=== PATIENT | female | born 1955 | race Caucasian/White ===

== ENCOUNTER 2019-01-15 09:44 | Inpatient (IN) ==
[~2019-01-15 09:44] MED LIST: Vancomycin 1,000 MG, Sodium Chloride IRRigation 1,000 ML IR ONE
[2019-01-15] MEDS ORDERED: CeFAZolin Syr 2,000MG/20 ML 2,000 MG/20 ML SYRINGE IVPB ONE (10:16)
[2019-01-15] MEDS ORDERED: Albuterol 2.5 MG/3 ML NEBULIZER IH ONE (10:16)
[2019-01-15] MEDS ORDERED: *HR* Remifentanil 1 MG VIAL IVP ONE (10:18)
[2019-01-15] MEDS ORDERED: Lidocaine -MPF 4% 5 ML AMPUL ONE (10:18)
[2019-01-15] MEDS ORDERED: *HR* Succinylcholine 200 MG/10 ML VIAL IVP ONE (10:18)
[2019-01-15] MEDS ORDERED: Water for inj. (sterile) 10 ML IV ONE (10:18)
[2019-01-15] MEDS ORDERED: Heparin 1,000 UNITS/500 mL 500 ML ONE (10:18)
[2019-01-15] MEDS ORDERED: Dexamethasone 4 MG/ML VIAL ONE (10:18)
[2019-01-15] MEDS ORDERED: Lidocaine -MPF 2% 2 ML VIAL ONE ×3 (10:18→15:34)
[2019-01-15] MEDS ORDERED: *HR* Midazolam HCl 2 MG/2 ML VIAL ONE (10:18)
[2019-01-15] MEDS ORDERED: *HR* Phenylephrine 10 MG/ML VIAL ONE (10:18)
[2019-01-15] MEDS ORDERED: Ondansetron 4 MG/2 ML VIAL ONE (10:18)
[2019-01-15] MEDS ORDERED: *HR* Propofol 200 MG/20 ML VIAL IVP ONE (10:18)
[2019-01-15] MEDS ORDERED: *HR* FentaNYL (PF) 100 MCG/2 ML VIAL ONE (10:18)
[2019-01-15] MEDS ORDERED: *HR* Heparin 5,000 UNIT/ML VIAL ONE (10:18)
[2019-01-15] MEDS ORDERED: *HR* Rocuronium Bromide 50 MG/5 ML VIAL ONE (11:02)
[2019-01-15] MEDS: Ringers Solution, Lactated 1,000 ML IVC SCH ×2 (11:12→16:34)
--- NOTE | 2019-01-15 11:22 | History & Physical Report ---
Date of Encounter: 01/15/19 Time of Encounter: 11:18 24 Hour HP Update - Instructions Instructions: If the History and Physical is less than 30 days old and was completed prior to A.M. admission and or procedure and has NOT been updated on calendar day of procedure please complete this update prior to performing procedure. - Update Patient reports changes in Medical Condition: No Changes in examination, assessment, or condition: No Changes in Medication: No Preop tests/diagnostics Reviewed: Yes Surgery Remains Indicated: Yes Consent for Planned Operative Procedure(s) Verified: Yes - Pre-Operative Checklist Preoperative Checklist Indicated: Yes Prophylactic Antibiotic Ordered: Yes (vancomycin due to risk of MRSA) Home Medications Include Beta Atiya: Yes Beta Atiya Taken Today (Day of Surgery): Yes Beta Atiya Taken Yesterday (Day Prior to Surgery): Yes Is VTE Prophylaxis Indicated?: Yes
--- NOTE | 2019-01-15 11:23 | Anesthesia Evaluation PreOp ---
Date of Encounter: 01/15/19 Time of Encounter: 11:20 - Past History Planned Operation: RIGHT CEA Cardiac History: PR, CHF, Angina (STABLE), HTN, Hyperlipidemia, Cardiac Stent (mLAD, UNKNOWN DATE), Other (: ISCHEMIA IN LAD TERRITORY BY STRESS TEST, OCCLUDED mLAD STENT BY [facility], NORMAL EF, MEDICAL THERAPY MAXIMIZED) Pulmonary History: Smoker, COPD (MILD, NO INHALERS), KHOA Dx (CLINICALLY) [employer] History: Denies Any Significant HX Other Medical History: Diabetes Type II Alcohol Use: none Drug use: none Medications and Allergies Levothyroxine [Synthroid] 100 mcg PO QAM 03/09/17 [History] Metformin HCl [Glucophage] 1,000 mg PO BID 03/09/17 [History] glyBURIDE [GlyBURIDE] 5 mg PO DAILY 03/09/17 [History] Aspirin 81 mg PO DAILY #30 tab.chew 03/26/17 [Rx] Nitroglycerin [Nitrostat] 0.4 mg SL Q5-10MIN PRN #30 tab.subl MDD X3 DOSES CALL 911 03/26/17 [Rx] Atorvastatin [Lipitor] 40 mg PO HS #30 tablet 04/02/18 [Rx] Clopidogrel [Plavix] 75 mg PO DAILY 04/02/18 [History] Isosorbide MONOnitrate (24 HR) [Imdur] 30 mg PO DAILY #30 tab.er.24h 04/02/18 [Rx] amLODIPine [Norvasc] 2.5 mg PO DAILY #30 tablet 04/02/18 [Rx] Atenolol [Tenormin] 25 mg PO BID 01/15/19 [History] Multivitamin [Daily Multiple Vitamin] 1 each PO DAILY 01/15/19 [History] Ranitidine HCl [Acid Safe Technician] 150 mg PO DAILY PRN 01/15/19 [History] Allergy/AdvReac Type Severity Reaction Status Date / Time Iodinated Contrast- Oral and Allergy Rash Verified 10/14/18 14:13 IV Dye [Iodinated Contrast Media - IV Dye] povidone-iodine Allergy Rash Verified 10/14/18 14:13 [From Betadine] soap [From Betadine] Allergy Rash Verified 10/14/18 14:13 codeine AdvReac Hives Verified 10/14/18 14:13 - Meds/Allergy Pre-op Review Medications Reviewed: Yes Allergies Reviewed: Yes Beta Blockers on Current Med List: Yes If Beta Blockers taken, Date/Time (Last Dose taken): 729 Anesthesia Results - Labs Laboratory Tests 12/25/18 12/25/18 12/25/18 14:12 14:12 14:12 Hgb 14.2 Plt Count 381 Potassium 3.8 Creatinine 0.72 Est GFR (Non-Af Amer) > 60 Hemoglobin A1c 8.1 H Anesthesia Exam O2 Sat Height 1.55 m Height 1.55 m Weight 72.575 kg Weight 72.575 kg O2 Sat by Pulse Oximetry 99 Vital Signs/O2 Sat/Glucose, Most Recent Temp Pulse Resp BP Pulse Ox 98.1 F 67 18 116/62 99 01/15/19 10:19 01/15/19 10:19 01/15/19 10:19 01/15/19 10:19 01/15/19 10:19 Blood Glucose* 180 NPO (# of Hours): 8 - HEENT Mallampati: IV Teeth: Normal Oral Opening: Greater than 3 - [employer] Motor: Normal RUE, Normal LUE, Normal RLE, Normal LLE, Normal Face (CN 1, 3- 7, 9-12 GROSSLY NORMAL) - Cardiac Rhythm: Regular - Pulmonary Breath Sounds: bilateral Clear Respiratory Effort: Symmetrical Anesthesia Assess/Plan ASA Score: 3 Anesthetic Plan: General Monitoring Plan: Standard Monitors, A-Line Recovery Plan: PACU
[2019-01-15] MEDS ORDERED: Nitroglycerin 25 MG/250 ML INFUS..BTL IVC ONE (11:37)
[2019-01-15] MEDS ORDERED: Protamine Sulfate 50 MG/5 ML VIAL IVP ONE (11:40)
[2019-01-15] MEDS ORDERED: Bupivacaine-MPF 0.25% 10 ML VIAL ONE (11:40)
[2019-01-15] MEDS ORDERED: Heparin 1,000 UNITS/500 mL 1,000 ML ONE (11:40)
[2019-01-15] MEDS ORDERED: Vancomycin 1,000 MG VIAL ONE (12:16)
[2019-01-15] MEDS ORDERED: Albumin Human 5% 25.0 GM/500 ML VIAL ONE (15:05)
[2019-01-15] MEDS ORDERED: *HR* HYDROMORPHONE 2 MG/ML VIAL ONE (15:22)
[2019-01-15] MEDS ORDERED: *HR* Labetalol 100 MG/20 ML MDV ONE (15:30)
--- NOTE | 2019-01-15 15:30 | Operative Note ---
Date of procedure: 01/15/19 Pre-op diagnosis: 80-99% Right internal carotid artery stenosis Post-op diagnosis: same Procedure: Right carotid endarterectomy with hemashield patch angioplasty. Complications: None Anesthesia: SHRUTHIA Surgeon: Rafael Davis Was there an podiatrist assistant present: No Estimated blood loss (cc): 50 Specimen: Right carotid plaque Condition: stable Disposition: PACU Procedure in Detail: Indications: The patient is a 64-year-old female with a history of hypertension, diabetes, hyperlipidemia, carotid stenosis and coronary artery disease. She was found to have an 80-99% right internal carotid artery stenosis. A right carotid endarterectomy was recommended to reduce her risk of a cerebrovascular accident. Procedure: The patient was identified in the preoperative area. The risks, benefits, and alternatives of the procedure were discussed and all questions were answered. The patient was then taken to the operating room and placed in supine position on the operating table. After the induction of general endotracheal anesthesia, the patient was cleaned and draped in normal sterile fashion. A longitudinal incision was made anterior to the right sternocleidomastoid muscle. Hemostasis was obtained via electrocautery. Through a process of blunt, sharp, and electrocautery dissection, the platysma was traversed and the jugular vein was identified. The facial vein was dissected, clamped, divided and ligated with a 2-0 silk suture ligature. The jugular vein was retracted to expose the carotid bifurcation. The patient received 3000 units of heparin intravenously at this time. Proximal dissection of the common and external carotid arteries were performed circumferentially. Dissection of the internal carotid was performed circumferentially. Vessels loops were passed around the internal and external carotid and an umbilical tape was passed from the common carotid artery. The patient received additional 2000 units of heparin intravenously. Additional heparin was given throughout the case to maintain adequate anticoagulation. After waiting adequate time for the heparin to circulate, the vessels were occluded and a longitudinal arteriotomy was made into the common carotid artery. The arteriotomy was extended into the internal carotid beyond the plaque. Vigorous pulsatile retrograde flow was noted from the internal carotid artery upon release of the vessel loop. Vigorous retrograde flow was indicative of significant retrograde perfusion. Therefore no shunt was placed.. A dental freer was then used to perform a standard endarterectomy. Proximal and distal endpoints were inspected. No elevated flaps were noted. A Hemashield patch was cut to fit the defect and sutured in place with running 6-0 Prolene. Prior to completing the closure, each vessel was flushed and then reoccluded. Heparinized saline was infused into the lumen. The patch was completed. Flow was then restored in the external carotid artery, followed the common carotid artery and lastly the internal carotid artery was opened. A low resistance arterialized signal was present within the internal carotid artery beyond the patch. Thrombin and Gelfoam were used to aid in hemostasis. Meticulous hemostasis was obtained throughout the wound with electrocautery. Platelet rich and platelet poor plasma were infused into the wounds. The sternocleidomastoid was reapproximated with interrupted 3-0 Vicryl. Platel et rich and platelet poor plasma were infused into the wound. A TLS drain was brought through a separate stab incision and sutured in place with 0 silk suture. The platysma was reapproximated with running 3-0 Vicryl. Local anesthetic was infused in the skin. A 3-0 Monocryl was used to reapproximate the skin. A sterile dressing was applied. The patient was extubated, taken to the recovery room in stable condition.
--- NOTE | 2019-01-15 16:20 | Anesthesia Evaluation Post Op ---
Date of Encounter: 01/15/19 Time of Encounter: 16:19 - Discharge PostOp Status: Transfer Patient to floor (Patient's vital signs have been reviewed. Patient is stable postoperatively and has adequately recovered from anesthesia. Patient is determined to have stable airway patency and respiratory function including respiratory rate and oxygen saturation. Patient has a stable heart rate, blood pressure and adequate hydration. Patients mental status is acceptable. Patients temperature is appropriate. Pain and nausea are adequately controlled.)
[2019-01-15] MEDS ORDERED: Famotidine 20 MG TABLET PO PRN (16:56)
[2019-01-15] MEDS ORDERED: *HR* HYDROcodone/Acet 5/325 mg TABLET PO PRN (16:56)
[2019-01-15] MEDS ORDERED: Ondansetron 4 MG/2 ML VIAL IVP PRN (16:56)
[2019-01-15] MEDS ORDERED: Naloxone 0.4 MG/ML INJ IVP PRN (16:56)
[2019-01-15] MEDS ORDERED: 0.9 % Sodium Chloride 1,000 ML IVC SCH (16:56)
[2019-01-15] MEDS ORDERED: *HR* Dextrose 50 % in Water (Syg) 50 ML SYRINGE IVP PRN (16:56)
[2019-01-15] MEDS ORDERED: Acetaminophen 325 MG TABLET PO PRN (16:56)
[2019-01-15] MEDS ORDERED: *HR* OxyCODONE Immed Rel 5 MG TABLET PO PRN (16:56)
[2019-01-15] MEDS ORDERED: Nitroglycerin 0.4 MG TAB.SUBL SL PRN (16:56)
[2019-01-15] MEDS ORDERED: D5% in Water 1,000 ML IVC PRN (16:56)
[2019-01-15] MEDS ORDERED: Dextrose Gel 15 GM/37.5 ML TUBE PO PRN ×2 (16:56)
[2019-01-15] MEDS: *HR* Metoprolol 5 MG/5 ML VIAL IVP SCH (17:21)
[2019-01-15] MEDS: Insulin LISPRO 300 UNITS/3 ML VIAL SQ SCH (17:22)
--- NOTE | 2019-01-15 20:05 | Event Note ---
Date of Encounter: 01/15/19 Time of Encounter: 19:30 The patient is resting comfortably. She has no neurologic deficits. She denies any chest pain or shortness of breath. She has no hematoma. She is making adequate urine. She will continue with clear liquids tonight and I will be catheter in the morning. She elected be discharged tomorrow.
[2019-01-15] MEDS ORDERED: Insulin LISPRO 300 UNITS/3 ML VIAL SQ SCH (21:00)
[2019-01-15] MEDS ORDERED: *HR* LORazepam 2 MG/ML VIAL IVP ONE (22:09)
[2019-01-15] MEDS ORDERED: *HR* LORazepam 2 MG/ML VIAL ONE (22:13)
[2019-01-15] MEDS ORDERED: Levalbuterol Neb 1.25 MG/3 ML ONE (22:20)
[2019-01-15] MEDS ORDERED: Vancomycin 0 MG in D5% in Water 250 ML IVPB ONE (23:30)
[2019-01-16] MEDS: *HR* Metoprolol 5 MG/5 ML VIAL IVP SCH ×2 (00:13→05:16)
[2019-01-16] MEDS ORDERED: *HR* Heparin 5,000 UNIT/ML VIAL SQ SCH (06:00)
--- NOTE | 2019-01-16 06:51 | Discharge Summary ---
Orders not resulted at time of discharge: Pending orders 01/15/19 15:57 Surgical Pathology [PTH] Routine Date of Encounter: 01/16/19 Time of Encounter: 07:45 - Discharge Diagnosis (1) Carotid stenosis, bilateral Priority: Primary Status: Acute (2) Coronary artery disease involving [place] coronary artery Status: Acute (3) Type 2 diabetes mellitus with other circulatory complications Status: Acute (4) Tobacco use Status: Chronic - Hospital Course Hospital course: Ms. Taylor is a 64 year old female - Time Spent with Patient Total time spent providing and/or coordinating discharge services: - Discharge Medications Prescriptions: OxyCODONE/APAP 5/325 [Percocet 5/325 MG] 1 each PO Q6HR PRN 4 Days #16 tablet PRN Reason: Postoperative pain Home Medications: Levothyroxine [Synthroid] 100 mcg PO QAM 03/09/17 [History] Metformin HCl [Glucophage] 1,000 mg PO BID 03/09/17 [History] glyBURIDE [GlyBURIDE] 5 mg PO DAILY 03/09/17 [History] Aspirin 81 mg PO DAILY #30 tab.chew 03/26/17 [Rx] Nitroglycerin [Nitrostat] 0.4 mg SL Q5-10MIN PRN #30 tab.subl MDD X3 DOSES CALL 911 03/26/17 [Rx] Atorvastatin [Lipitor] 40 mg PO HS #30 tablet 04/02/18 [Rx] Clopidogrel [Plavix] 75 mg PO DAILY 04/02/18 [History] Isosorbide MONOnitrate (24 HR) [Imdur] 30 mg PO DAILY #30 tab.er.24h 04/02/18 [Rx] amLODIPine [Norvasc] 2.5 mg PO DAILY #30 tablet 04/02/18 [Rx] Atenolol [Tenormin] 25 mg PO BID 01/15/19 [History] Multivitamin [Daily Multiple Vitamin] 1 each PO DAILY 01/15/19 [History] Ranitidine HCl [Acid Shoveler] 150 mg PO DAILY PRN 01/15/19 [History] OxyCODONE/APAP 5/325 [Percocet 5/325 MG] 1 each PO Q6HR PRN 4 Days #16 tablet 01/16/19 [Rx] Allergies/Adverse Reactions: Allergy/AdvReac Type Severity Reaction Status Date / Time Iodinated Contrast- Oral and Allergy Rash Verified 10/14/18 14:13 IV Dye [Iodinated Contrast Media - IV Dye] povidone-iodine Allergy Rash Verified 10/14/18 14:13 [From Betadine] soap [From Betadine] Allergy Rash Verified 10/14/18 14:13 codeine AdvReac Hives Verified 10/14/18 14:13 Date of admission: 01/15/19 16:54 Primary care physician: Kati Ovalle Exam Vital Signs, Last 4 Hours Temp Pulse Resp BP Pulse Ox 01/16/19 03:58 98.7 F 101 16 128/63 96 - Patient Status Disposition: Home, Self-Care Condition: Good Functional capacity at discharge: independent ambulation Overall status at discharge: patient is back to baseline - Discharge Instructions Follow Up With: Kati Ovalle CNP [Primary Care Provider] - 01/26/19 10:15 am Rafael Davis MD [Partnered Physician] - 02/11/19 2:40 pm Additional Instructions: May remove bandage and shower on 01/17/2019. Wash wound gently and pat to dry. No driving for [address] Davis at [phone] with questions or concerns. - Diet and Activity Activity: increase activity as tolerated Diet: diabetic diet
[2019-01-16 07:14] VITALS: BP 141/65
[2019-01-16] MEDS: Insulin LISPRO 300 UNITS/3 ML VIAL SQ SCH (07:35)
[2019-01-16] MEDS ORDERED: Aspirin 81 MG TAB.CHEW PO SCH (09:00)
[2019-01-16] MEDS ORDERED: amLODIPine 5 MG TABLET PO SCH (09:00)
[2019-01-16] MEDS ORDERED: Isosorbide MONOnitrate (24 HR) 30 MG TAB.ER.24H PO SCH (09:00)
[2019-01-16] MEDS ORDERED: Multivit/Ca/Min/Fe/FA 1 TAB TABLET PO SCH (09:00)
[2019-01-16] MEDS ORDERED: Levalbuterol Neb 1.25 MG/3 ML IH ONE (22:11)
== END 2019-01-16 09:59 | disposition home or self-care (01) | DRG 39 ==
LOC: SAMDAY 09:44 → 2NNU 16:54
PROVIDERS: ADMIT Surgery; ATTEND Surgery

== ENCOUNTER 2020-05-24 10:44 | Observation (INO) ==
[2020-05-24 11:24] LABS: Basophils # 0.1 K/mcL (0.0-0.2); Basophils % 0.8 %; Eosinophils # 0.3 K/mcL (0.0-0.6); Eosinophils % 1.6 %; Hematocrit 43.7 % (35.3-44.9); Hemoglobin 14.6 g/dL (11.5-15.4); Immature Granulocytes % 0.4 % (0-4); Lymphocytes # 5.1 K/mcL (0.6-4.6); Lymphocytes % 32.7 %; Mean Corpuscular HGB Conc 33.4 g/dL (31.6-35.5); Mean Corpuscular Hemoglobin 32.3 pg (28.0-33.3); Mean Corpuscular Volume 96.7 fL (83.0-100.0); Mean Platelet Volume 9.1 fL (9.4-12.4); Monocytes # 1.1 K/mcL (0.0-1.3); Monocytes % 7.1 %; Platelet Count 408 K/mcL (140-400); Red Blood Count 4.52 M/mcL (3.82-4.97); Red Cell Distribution Width 13.9 % (11.5-14.5); Segmented Neutrophils % 57.4 %; White Blood Count 15.7 K/mcL (4.3-11.1)
[2020-05-24 11:41] LABS: BUN/Creatinine Ratio 21 (6-26); Blood Urea Nitrogen 14 mg/dL (8-23); Calcium 9.5 mg/dL (8.6-10.3); Carbon Dioxide 26 mEq/L (23-29); Chloride 104 mEq/L (98-107); Glucose 207 mg/dL (70-105); Osmolality,Calculated 291 (280-300); Potassium 4.2 mEq/L (3.5-5.1); Sodium 137 mEq/L (136-145); Troponin I < 0.03 ng/mL (< 0.04); eGFR For African Americans > 60 (> 60); eGFR For Non-African Americans > 60 (> 60)
[2020-05-24] MEDS ORDERED: Nitroglycerin 0.4 MG TAB.SUBL SL PRN (14:13)
[2020-05-24] MEDS ORDERED: Morphine Sulfate 2 MG/ML SYRINGE IVP PRN (14:13)
[2020-05-24] MEDS ORDERED: Ondansetron 4 MG/2 ML VIAL IVP PRN (14:13)
[2020-05-24] MEDS ORDERED: *HR* Dextrose 50 % in Water (Vial) 50 ML VIAL IVP PRN (17:13)
[2020-05-24] MEDS ORDERED: D5% in Water 1,000 ML IVC PRN (17:13)
[2020-05-24] MEDS ORDERED: Dextrose Gel 15 GM/37.5 ML TUBE PO PRN ×2 (17:13)
[2020-05-24] MEDS ORDERED: Perflutren Lipid Microsphere 1.3 ML in 0.9 % Sodium Chloride 8.7 ML IVP ONE (20:53)
[2020-05-24] MEDS ORDERED: Insulin LISPRO 300 UNITS/3 ML VIAL SQ SCH (21:00)
[2020-05-25 01:17] LABS: Basophils # 0.1 K/mcL (0.0-0.2); Basophils % 0.7 %; Eosinophils % 2.2 %; Hemoglobin 13.9 g/dL (11.5-15.4); Immature Granulocytes % 0.1 % (0-4); Lymphocytes # 4.5 K/mcL (0.6-4.6); Lymphocytes % 40.3 %; Mean Corpuscular HGB Conc 33.9 g/dL (31.6-35.5); Mean Corpuscular Hemoglobin 32.2 pg (28.0-33.3); Mean Corpuscular Volume 94.9 fL (83.0-100.0); Mean Platelet Volume 9.2 fL (9.4-12.4); Monocytes % 6.7 %; Neutrophils # 5.6 K/mcL (1.6-8.9); Platelet Count 378 K/mcL (140-400); Red Blood Count 4.32 M/mcL (3.82-4.97); Red Cell Distribution Width 13.5 % (11.5-14.5); White Blood Count 11.1 K/mcL (4.3-11.1)
[2020-05-25 01:18] LABS: Prothrombin Time 11.9 Seconds (9.4-12.1)
[2020-05-25 01:24] LABS: Eosinophils # 0.2 K/mcL (0.0-0.6); Monocytes # 0.7 K/mcL (0.0-1.3)
[2020-05-25 01:41] LABS: Alanine Aminotransferase 17 Units/L (7-52); Albumin 3.8 g/dL (3.5-5.7); Albumin/Globulin Ratio 1.3 (1.1-2.2); Alkaline Phosphatase 88 Units/L (34-104); Aspartate Amino Transferase 15 Units/L (13-39); BUN/Creatinine Ratio 17 (6-26); Bilirubin,Total 0.2 mg/dL (0.3-1.0); Blood Urea Nitrogen 9 mg/dL (8-23); Carbon Dioxide 26 mEq/L (23-29); Chloride 104 mEq/L (98-107); Globulin 2.9 g/dL (2.4-3.5); Glucose 162 mg/dL (70-105); Magnesium 1.9 mg/dL (1.6-2.6); Osmolality,Calculated 286 (280-300); Potassium 3.8 mEq/L (3.5-5.1); Sodium 137 mEq/L (136-145); Total Protein 6.7 g/dL (6.4-8.9); Troponin I < 0.03 ng/mL (< 0.04); eGFR For African Americans > 60 (> 60); eGFR For Non-African Americans > 60 (> 60)
[2020-05-25 01:54] LABS: Platelet Estimate Normal (Normal); Reactive Lymphocytes Present (Not Present)
[2020-05-25] MEDS ORDERED: Regadenoson 0.4 MG/5 ML SYRINGE IVP ONE (06:37)
[2020-05-25] MEDS ORDERED: Aspirin 81 MG TAB.CHEW PO SCH (09:00)
[2020-05-25] MEDS ORDERED: Isosorbide MONOnitrate (24 HR) 30 MG TAB.ER.24H PO SCH (09:00)
[2020-05-25] MEDS ORDERED: amLODIPine 5 MG TABLET PO SCH (09:00)
[2020-05-25] MEDS: Insulin LISPRO 300 UNITS/3 ML VIAL SQ SCH (12:12)
[2020-05-25 14:49] VITALS: BP 142/73
[2020-05-25] MEDS ORDERED: *HR* Heparin 5,000 UNIT/ML VIAL SQ SCH (18:00)
== END 2020-05-25 17:51 | disposition home or self-care (01) ==
LOC: 3BNU 10:44 → EMEROOARM 10:44 → SUATTDRO 14:13 → 3BNU 14:15
PROVIDERS: ADMIT Family Medicine; ATTEND Internal Medicine

== ENCOUNTER 2020-11-09 08:32 | Inpatient (IN) ==
[2020-11-09] MEDS ORDERED: 0.9 % Sodium Chloride 1,000 ML ONE (09:15)
[2020-11-09] MEDS ORDERED: Nitroglycerin 1,000 MCG/10 ML VIAL IV ONE (09:15)
[2020-11-09] MEDS ORDERED: ISOVUE-370 200 ML INFUS..BTL ONE (09:15)
[2020-11-09] MEDS ORDERED: Heparin 1,000 UNITS/500 mL 500 ML ONE (09:15)
[2020-11-09] MEDS ORDERED: *HR* Heparin 10,000 UNIT/10 ML VIAL ONE (09:15)
[2020-11-09] MEDS: 0.9 % Sodium Chloride 1,000 ML IVC SCH ×2 (09:27→19:50)
[2020-11-09] MEDS ORDERED: *HR* Midazolam HCl 2 MG/2 ML VIAL ONE ×2 (09:57→10:17)
[2020-11-09] MEDS ORDERED: *HR* FentaNYL (PF) 100 MCG/2 ML VIAL ONE (09:57)
[2020-11-09] MEDS ORDERED: *HR* Labetalol 100 MG/20 ML MDV ONE (10:40)
[2020-11-09] MEDS ORDERED: Nitroglycerin Spray 4.9 GM BOTTLE ONE (10:40)
[2020-11-09] MEDS ORDERED: methylPREDNISolone 125 MG/2 ML VIAL ONE (10:41)
[2020-11-09] MEDS ORDERED: Famotidine 20 MG TABLET PO PRN (13:53)
[2020-11-09] MEDS ORDERED: Nitroglycerin 0.4 MG TAB.SUBL SL PRN (13:53)
[2020-11-09] MEDS ORDERED: Acetaminophen 325 MG TABLET PO PRN (13:57)
[2020-11-09] MEDS ORDERED: Dextrose Gel 15 GM/37.5 ML TUBE PO PRN ×2 (13:57)
[2020-11-09] MEDS ORDERED: D5% in Water 1,000 ML IVC PRN (13:57)
[2020-11-09] MEDS ORDERED: *HR* Dextrose 50 % in Water (Vial) 50 ML VIAL IVP PRN (13:57)
[2020-11-09] MEDS: Insulin LISPRO 300 UNITS/3 ML VIAL SQ SCH (16:55)
[2020-11-09] MEDS: predniSONE 20 MG TABLET PO SCH (19:53)
[2020-11-09] MEDS: atenoloL 25 MG TABLET PO SCH (19:53)
[2020-11-09] MEDS ORDERED: Isosorbide MONOnitrate (24 HR) 30 MG TAB.ER.24H PO ONE (20:10)
[2020-11-10 07:08] LABS: Basophils % 0.1 %; Eosinophils % 0.1 %; Hematocrit 41.3 % (35.3-44.9); Immature Granulocytes % 0.8 % (0-4); Lymphocytes % 12.2 %; Mean Corpuscular HGB Conc 32.9 g/dL (31.6-35.5); Mean Corpuscular Hemoglobin 31.4 pg (28.0-33.3); Mean Corpuscular Volume 95.4 fL (83.0-100.0); Mean Platelet Volume 9.9 fL (9.4-12.4); Monocytes # 0.4 K/mcL (0.0-1.3); Monocytes % 2.4 %; Neutrophils # 13.8 K/mcL (1.6-8.9); Platelet Count 372 K/mcL (140-400); Red Blood Count 4.33 M/mcL (3.82-4.97); Red Cell Distribution Width 12.9 % (11.5-14.5); Segmented Neutrophils % 84.4 %; White Blood Count 16.3 K/mcL (4.3-11.1)
[2020-11-10 07:10] LABS: Hemoglobin 13.6 g/dL (11.5-15.4)
[2020-11-10 07:17] LABS: BUN/Creatinine Ratio 30 (6-26); Blood Urea Nitrogen 19 mg/dL (8-23); Calcium 8.7 mg/dL (8.6-10.3); Carbon Dioxide 23 mEq/L (23-29); Chloride 103 mEq/L (98-107); Glucose 334 mg/dL (70-105); Osmolality,Calculated 291 (280-300); Potassium 4.1 mEq/L (3.5-5.1); Sodium 133 mEq/L (136-145); eGFR For African Americans > 60 (> 60); eGFR For Non-African Americans > 60 (> 60)
[2020-11-10] MEDS ORDERED: Isovue-370 500 ML BOTTLE IVP ONE (08:00)
[2020-11-10] MEDS ORDERED: Isosorbide MONOnitrate (24 HR) 30 MG TAB.ER.24H PO SCH (09:00)
[2020-11-10] MEDS ORDERED: Metoprolol 100 MG TABLET PO ONE ×2 (09:10→09:30)
[2020-11-10] MEDS: predniSONE 20 MG TABLET PO SCH (09:17)
[2020-11-10] MEDS: Insulin LISPRO 300 UNITS/3 ML VIAL SQ SCH ×3 (09:22→16:52)
[2020-11-10] MEDS ORDERED: 0.9 % Sodium Chloride 500 ML ONE (09:37)
[2020-11-10] MEDS ORDERED: *HR* Metoprolol 5 MG/5 ML VIAL IVP ONE (09:37)
[2020-11-10] MEDS ORDERED: IVABRADINE HCL 7.5 MG TABLET PO ONE (09:45)
[2020-11-10] MEDS: Multivit/Ca/Min/Fe/FA 1 TAB TABLET PO SCH (11:04)
[2020-11-10] MEDS: atenoloL 25 MG TABLET PO SCH ×2 (11:04→21:34)
[2020-11-10] MEDS: Aspirin 81 MG TAB.CHEW PO SCH (11:04)
[2020-11-10] MEDS: Cyanocobalamin (B-12) 1,000 MCG TABLET PO SCH (11:04)
[2020-11-10] MEDS: amLODIPine 5 MG TABLET PO SCH (11:04)
[2020-11-10] MEDS: *HR* GlyBURIDE 5 MG TABLET PO SCH (11:04)
[2020-11-10] MEDS ORDERED: Perflutren Lipid Microsphere 1.3 ML in 0.9 % Sodium Chloride 8.7 ML IVP PRN (13:06)
[2020-11-10] MEDS: 0.9 % Sodium Chloride 1,000 ML IVC SCH (16:52)
[2020-11-10] MEDS: *HR* Heparin 5,000 UNIT/ML VIAL SQ SCH (16:52)
[2020-11-11 05:16] LABS: Basophils # 0.1 K/mcL (0.0-0.2); Basophils % 0.3 %; Eosinophils % 0.1 %; Hematocrit 42.2 % (35.3-44.9); Hemoglobin 13.7 g/dL (11.5-15.4); Immature Granulocytes % 0.5 % (0-4); Lymphocytes # 6.2 K/mcL (0.6-4.6); Lymphocytes % 37.3 %; Mean Corpuscular HGB Conc 32.5 g/dL (31.6-35.5); Mean Corpuscular Hemoglobin 31.3 pg (28.0-33.3); Mean Corpuscular Volume 96.3 fL (83.0-100.0); Mean Platelet Volume 9.7 fL (9.4-12.4); Monocytes % 6.1 %; Neutrophils # 9.3 K/mcL (1.6-8.9); Platelet Count 361 K/mcL (140-400); Red Blood Count 4.38 M/mcL (3.82-4.97); Red Cell Distribution Width 13.2 % (11.5-14.5); Segmented Neutrophils % 55.7 %; White Blood Count 16.6 K/mcL (4.3-11.1)
[2020-11-11 05:29] LABS: BUN/Creatinine Ratio 26 (6-26); Blood Urea Nitrogen 18 mg/dL (8-23); Calcium 8.6 mg/dL (8.6-10.3); Carbon Dioxide 26 mEq/L (23-29); Chloride 105 mEq/L (98-107); Glucose 244 mg/dL (70-105); Osmolality,Calculated 294 (280-300); Potassium 3.8 mEq/L (3.5-5.1); Sodium 137 mEq/L (136-145); eGFR For African Americans > 60 (> 60); eGFR For Non-African Americans > 60 (> 60)
[2020-11-11] MEDS: *HR* Heparin 5,000 UNIT/ML VIAL SQ SCH (05:41)
[2020-11-11 07:05] VITALS: BP 152/74
[2020-11-11] MEDS: Multivit/Ca/Min/Fe/FA 1 TAB TABLET PO SCH (07:41)
[2020-11-11] MEDS: Cyanocobalamin (B-12) 1,000 MCG TABLET PO SCH (07:41)
[2020-11-11] MEDS: Aspirin 81 MG TAB.CHEW PO SCH (07:41)
[2020-11-11] MEDS: Insulin LISPRO 300 UNITS/3 ML VIAL SQ SCH ×2 (07:42→11:12)
[2020-11-11] MEDS: *HR* GlyBURIDE 5 MG TABLET PO SCH (07:42)
[2020-11-11] MEDS: atenoloL 25 MG TABLET PO SCH (07:42)
[2020-11-11] MEDS: amLODIPine 5 MG TABLET PO SCH (07:42)
[2020-11-11] MEDS ORDERED: Isosorbide MONOnitrate (24 HR) 60 MG TAB.ER.24H PO SCH (09:00)
== END 2020-11-11 15:44 | disposition short-term general hospital (02) | DRG 287 ==
LOC: INVDIALAB 08:32 → 2ANU 13:24
PROVIDERS: ADMIT Internal Medicine Cardiovascular Disease; ATTEND Internal Medicine Cardiovascular Disease